=== PATIENT | male | born 1955 | race Caucasian/White ===

== ENCOUNTER 2022-10-27 15:54 | Inpatient (IN) | payer MEDICARE, OTHER ==
[~2022-10-27] VITALS: Ht 177.8 cm; Wt 75.8 kg
[2022-10-27] MEDS ORDERED: FUROSEMIDE 40 MG/4 ML VIAL IVP ONE (16:30)
[2022-10-27 16:32] LABS: BASOPHILS % (AUTO) 0.3 % (0.0-2.0); HEMATOCRIT 33.8 % (41-53); HEMOGLOBIN 10.9 g/dL (13.5-17.5); LYMPHOCYTES # (AUTO) 0.4 K/uL (1.0-4.8); LYMPHOCYTES % (AUTO) 9.8 % (22.0-44.0); MEAN CORPUSCULAR HEMOGLOBIN 28.2 pg (26.0-34.0); MEAN CORPUSCULAR HGB CONC 32.3 G/dL (31.0-37.0); MEAN CORPUSCULAR VOLUME 87 fL (80-100); MONOCYTES # (AUTO) 0.5 K/uL (0.1-1.0); MONOCYTES % (AUTO) 13.2 % (2.0-9.0); NEUTROPHILS # (AUTO) 2.9 K/uL (1.8-7.7); NEUTROPHILS % (AUTO) 75.7 % (40.0-70.0); PLATELET COUNT (AUTO) 162 K/uL (150-450); RED BLOOD CELL COUNT(AUTO) 3.87 MIL/uL (4.50-5.90); RED CELL DISTRIBUTION WIDTH 16.7 % (11.5-14.5); WHITE BLOOD COUNT (AUTO) 3.8 K/uL (4.5-11.0)
[2022-10-27 17:08] LABS: CALCIUM, TOTAL 7.6 mg/dL (8.8-10.5); CREATININE 2.75 mg/dL (0.60-1.30); POTASSIUM 3.6 mmol/L (3.5-5.1)
[2022-10-27 17:14] LABS: ALBUMIN 1.8 g/dL (3.4-5.0); BILIRUBIN,TOTAL 1.1 mg/dL (0.1-1.0); TOTAL PROTEIN, SERUM 5.2 g/dL (6.4-8.2)
[2022-10-27 17:16] LABS: LACTIC ACID 0.9 mmol/L (0.4-2.0); TROPONIN I-HIGH SENSITIVITY 61 ng/L (<76)
[2022-10-27 17:16] LABS: COVID AG,FIA SOURCE NASAL SWAB
[2022-10-27] MEDS ORDERED: BUMETANIDE 0.25 MG/ML 4 ML VIAL IVP ONE (17:30)
[2022-10-27 17:34] LABS: SARS-COV2 (COVID) ANTIGEN,FIA Negative (Negative)
[2022-10-27 17:35] LABS: INFLUENZA TYPE A NEGATIVE FOR TYPE A (NEGATIVE); INFLUENZA TYPE B NEGATIVE FOR TYPE B (NEGATIVE)
[2022-10-27 21:46] VITALS: BP 96/60; PULSE 93; RESP 22; TEMP 97.5
[2022-10-27] MEDS ORDERED: ACETAMINOPHEN 325 MG TABLET PO PRN (22:45)
[2022-10-27] MEDS ORDERED: IPRATROPIUM BROMIDE 0.5 MG/2.5 ML NEB SOLUTION NEB PRN (22:45)
[2022-10-27] MEDS ORDERED: ONDANSETRON HCL 4 MG/2 ML VIAL IVP PRN (22:45)
[2022-10-27] MEDS ORDERED: MORPHINE SULFATE 2 MG/ML SYRINGE IVP PRN (22:45)
[2022-10-27] MEDS ORDERED: BISACODYL 10 MG RECTAL RECTAL SUPPOSITORY PR PRN (22:45)
[2022-10-27] MEDS ORDERED: MAGNESIUM HYDROXIDE SUSPENSION 30 ML UDCUP PO PRN (22:45)
[2022-10-27] MEDS ORDERED: ALBUTEROL SULFATE 2.5 MG/0.5 ML NEB SOLUTION NEB PRN (22:45)
[2022-10-27] MEDS ORDERED: ATOR40TA28 PO (23:14)
[2022-10-27] MEDS ORDERED: FURO40 PO (23:14)
[2022-10-27] MEDS ORDERED: MULT-1203 PO (23:14)
[2022-10-27] MEDS ORDERED: GABA-1216 PO (23:14)
[2022-10-27] MEDS ORDERED: CARV3 PO (23:14)
[2022-10-27] MEDS ORDERED: PANT-31 PO (23:14)
[2022-10-27] MEDS ORDERED: TAMS0.4C34 PO (23:14)
[2022-10-27] MEDS ORDERED: BISA10SU11 PR (23:14)
[2022-10-27] MEDS ORDERED: APIX2.5T PO (23:14)
[2022-10-27] MEDS ORDERED: FINA-27 PO (23:14)
[2022-10-27] MEDS ORDERED: [UNRECOGNIZED DRUG - CODE] PO (23:14)
[2022-10-28] VITALS (7 sets, daily range): BP systolic 104–122; BP diastolic 57–78; PULSE 72–104; RESP 19–22; TEMP 97.4–98.7
[2022-10-28] MEDS: HEPARIN SODIUM,PORCINE 5,000 UNITS/ML VIAL SQ SCH ×3 (00:20→15:51)
[2022-10-28 05:37] LABS: BASOPHILS % (AUTO) 0.4 % (0.0-2.0); EOSINOPHILS % (AUTO) 0.9 % (1.0-6.0); HEMATOCRIT 36.7 % (41-53); LYMPHOCYTES # (AUTO) 0.4 K/uL (1.0-4.8); LYMPHOCYTES % (AUTO) 8.4 % (22.0-44.0); MEAN CORPUSCULAR HEMOGLOBIN 28.5 pg (26.0-34.0); MEAN CORPUSCULAR HGB CONC 32.6 G/dL (31.0-37.0); MEAN CORPUSCULAR VOLUME 88 fL (80-100); MONOCYTES # (AUTO) 0.6 K/uL (0.1-1.0); MONOCYTES % (AUTO) 12.5 % (2.0-9.0); NEUTROPHILS # (AUTO) 3.8 K/uL (1.8-7.7); NEUTROPHILS % (AUTO) 77.8 % (40.0-70.0); PLATELET COUNT (AUTO) 166 K/uL (150-450); RED CELL DISTRIBUTION WIDTH 16.8 % (11.5-14.5); WHITE BLOOD COUNT (AUTO) 4.9 K/uL (4.5-11.0)
[2022-10-28] MEDS ORDERED: SODIUM CHLORIDE 0.9% 250 ML IV ONE (05:37)
[2022-10-28] MEDS: CefTRIAXone 1 GM/DEXTROSE 50 ML IV SCH (05:45)
[2022-10-28 06:07] LABS: BILIRUBIN,TOTAL 1.2 mg/dL (0.1-1.0); CALCIUM, TOTAL 7.8 mg/dL (8.8-10.5); CREATININE 2.48 mg/dL (0.60-1.30); POTASSIUM 3.3 mmol/L (3.5-5.1); TOTAL PROTEIN, SERUM 5.8 g/dL (6.4-8.2)
[2022-10-28 06:09] LABS: TROPONIN I-HIGH SENSITIVITY 52 ng/L (<76)
[2022-10-28] MEDS: PANTOPRAZOLE SODIUM 40 MG DR TABLET PO SCH (08:29)
[2022-10-28] MEDS ORDERED: FUROSEMIDE 20 MG/2 ML VIAL IVP SCH (09:00)
[2022-10-28 09:51] LABS: APPEARANCE,URINE CLEAR (CLEAR); BILIRUBIN,URINE NEGATIVE (NEGATIVE); COLOR,URINE YELLOW (YELLOW); GLUCOSE, URINE (UA) NEGATIVE (NEGATIVE); KETONES,URINE NEGATIVE (NEGATIVE); LEUKOCYTE ESTERASE ,URINE NEGATIVE (NEGATIVE); NITRATE,URINE NEGATIVE (NEGATIVE); OCCULT BLOOD,URINE NEGATIVE (NEGATIVE); PH,URINE 6.5 (5.0-8.0); PROTEIN,URINE TRACE mg/dL (NEGATIVE); SPECIFIC GRAVITIY, URINE 1.006 (1.003-1.030)
[2022-10-28 09:54] LABS: BACTERIA,URINE None Seen /HPF (None Seen); RBC,URINE None Seen /HPF (0-2); WBC,URINE None Seen /HPF (0-5)
[2022-10-28] MEDS ORDERED: POTASSIUM CHLORIDE 20 MEQ ER TABLET PO ONE (10:45)
[2022-10-28] MEDS: BUMETANIDE 0.25 MG/ML 4 ML VIAL IVP SCH ×2 (12:46→20:30)
[2022-10-28] MEDS: APIXABAN 2.5 MG TABLET PO SCH (20:30)
[2022-10-28] MEDS ORDERED: CARVEDILOL 3.125 MG TABLET PO SCH (21:00)
[2022-10-29] MEDS: CefTRIAXone 1 GM/DEXTROSE 50 ML IV SCH (04:08)
[2022-10-29 04:37] VITALS: BP 125/79; PULSE 95; RESP 18; TEMP 98.2
[2022-10-29 07:39] VITALS: BP 124/76; PULSE 120; RESP 19; TEMP 97.1
[2022-10-29] MEDS ORDERED: POTASSIUM CHLORIDE 20 MEQ ER TABLET PO ONE (08:00)
[2022-10-29] MEDS: PANTOPRAZOLE SODIUM 40 MG DR TABLET PO SCH (09:14)
[2022-10-29] MEDS: APIXABAN 2.5 MG TABLET PO SCH ×2 (09:14→21:47)
[2022-10-29] MEDS: BUMETANIDE 0.25 MG/ML 4 ML VIAL IVP SCH ×2 (09:14→21:47)
[2022-10-29] MEDS: CARVEDILOL 6.25 MG TABLET PO SCH ×2 (09:14→21:47)
[2022-10-29 09:57] LABS: BASOPHILS % (AUTO) 0.5 % (0.0-2.0); EOSINOPHILS % (AUTO) 0.5 % (1.0-6.0); HEMATOCRIT 39.1 % (41-53); HEMOGLOBIN 12.6 g/dL (13.5-17.5); LYMPHOCYTES # (AUTO) 0.4 K/uL (1.0-4.8); LYMPHOCYTES % (AUTO) 8.3 % (22.0-44.0); MEAN CORPUSCULAR HEMOGLOBIN 28.1 pg (26.0-34.0); MEAN CORPUSCULAR HGB CONC 32.2 G/dL (31.0-37.0); MEAN CORPUSCULAR VOLUME 87 fL (80-100); MONOCYTES # (AUTO) 0.7 K/uL (0.1-1.0); MONOCYTES % (AUTO) 15.5 % (2.0-9.0); NEUTROPHILS # (AUTO) 3.6 K/uL (1.8-7.7); NEUTROPHILS % (AUTO) 75.2 % (40.0-70.0); PLATELET COUNT (AUTO) 246 K/uL (150-450); RED BLOOD CELL COUNT(AUTO) 4.47 MIL/uL (4.50-5.90); RED CELL DISTRIBUTION WIDTH 16.7 % (11.5-14.5); WHITE BLOOD COUNT (AUTO) 4.8 K/uL (4.5-11.0)
[2022-10-29 10:14] LABS: TROPONIN I-HIGH SENSITIVITY 27 ng/L (<76)
[2022-10-29 10:18] LABS: BILIRUBIN,TOTAL 1.2 mg/dL (0.1-1.0); CALCIUM, TOTAL 7.7 mg/dL (8.8-10.5); CREATININE 1.89 mg/dL (0.60-1.30); POTASSIUM 3.3 mmol/L (3.5-5.1); TOTAL PROTEIN, SERUM 6.1 g/dL (6.4-8.2)
[2022-10-29 12:42] VITALS: BP 100/71; PULSE 106; RESP 19; TEMP 97.7
[2022-10-29 15:45] VITALS: BP 112/57; PULSE 112; RESP 19; TEMP 97.1
[2022-10-29] MEDS: MetroNIDAZOLE 500 MG TABLET PO SCH ×2 (16:29→23:33)
[2022-10-29 19:39] VITALS: BP 100/63; PULSE 104; RESP 20; TEMP 97.6
[2022-10-30 00:02] VITALS: BP 100/59; PULSE 103; RESP 19; TEMP 97.9
[2022-10-30] MEDS: CefTRIAXone 1 GM/DEXTROSE 50 ML IV SCH (03:51)
[2022-10-30 04:44] VITALS: BP 106/81; PULSE 112; RESP 20; TEMP 98
[2022-10-30 07:09] VITALS: BP 107/75; PULSE 101; RESP 18; TEMP 98
[2022-10-30 07:31] LABS: BASOPHILS % (AUTO) 0.8 % (0.0-2.0); EOSINOPHILS % (AUTO) 0.9 % (1.0-6.0); HEMATOCRIT 37.3 % (41-53); HEMOGLOBIN 12.1 g/dL (13.5-17.5); LYMPHOCYTES # (AUTO) 0.6 K/uL (1.0-4.8); LYMPHOCYTES % (AUTO) 10.9 % (22.0-44.0); MEAN CORPUSCULAR HEMOGLOBIN 28.5 pg (26.0-34.0); MEAN CORPUSCULAR HGB CONC 32.5 G/dL (31.0-37.0); MEAN CORPUSCULAR VOLUME 88 fL (80-100); MONOCYTES # (AUTO) 0.8 K/uL (0.1-1.0); MONOCYTES % (AUTO) 15.1 % (2.0-9.0); NEUTROPHILS # (AUTO) 3.8 K/uL (1.8-7.7); NEUTROPHILS % (AUTO) 72.3 % (40.0-70.0); PLATELET COUNT (AUTO) 260 K/uL (150-450); RED BLOOD CELL COUNT(AUTO) 4.25 MIL/uL (4.50-5.90); RED CELL DISTRIBUTION WIDTH 16.3 % (11.5-14.5); WHITE BLOOD COUNT (AUTO) 5.2 K/uL (4.5-11.0)
[2022-10-30 07:49] LABS: BILIRUBIN,TOTAL 1.2 mg/dL (0.1-1.0); CREATININE 1.79 mg/dL (0.60-1.30); POTASSIUM 3.7 mmol/L (3.5-5.1); TOTAL PROTEIN, SERUM 6.1 g/dL (6.4-8.2)
[2022-10-30] MEDS: CARVEDILOL 6.25 MG TABLET PO SCH ×2 (09:19→21:08)
[2022-10-30] MEDS: MetroNIDAZOLE 500 MG TABLET PO SCH ×2 (09:19→16:31)
[2022-10-30] MEDS: APIXABAN 2.5 MG TABLET PO SCH ×2 (09:19→21:14)
[2022-10-30] MEDS: PANTOPRAZOLE SODIUM 40 MG DR TABLET PO SCH (09:19)
[2022-10-30] MEDS: BUMETANIDE 1 MG TABLET PO SCH ×2 (09:19→21:08)
[2022-10-30 11:15] VITALS: BP 119/59; PULSE 116; RESP 18; TEMP 98
[2022-10-30 15:17] VITALS: BP 110/70; PULSE 110; RESP 18; TEMP 98
[2022-10-30] MEDS: HYDROCODONE/ACETAMINOPHEN 5-325 MG TABLET PO PRN (16:37)
[2022-10-30 20:36] VITALS: BP 97/65; PULSE 111; RESP 19; TEMP 98.5
[2022-10-31] MEDS: MetroNIDAZOLE 500 MG TABLET PO SCH ×4 (00:47→23:21)
[2022-10-31 00:48] VITALS: BP 98/64; PULSE 75; RESP 19; TEMP 98
[2022-10-31 04:43] VITALS: BP 118/63; PULSE 59; RESP 18; TEMP 97.7
[2022-10-31] MEDS: CefTRIAXone 1 GM/DEXTROSE 50 ML IV SCH (05:07)
[2022-10-31 06:52] LABS: BASOPHILS % (AUTO) 0.7 % (0.0-2.0); HEMOGLOBIN 11.4 g/dL (13.5-17.5); LYMPHOCYTES # (AUTO) 0.5 K/uL (1.0-4.8); LYMPHOCYTES % (AUTO) 10.2 % (22.0-44.0); MEAN CORPUSCULAR HEMOGLOBIN 28.5 pg (26.0-34.0); MEAN CORPUSCULAR HGB CONC 32.6 G/dL (31.0-37.0); MEAN CORPUSCULAR VOLUME 87 fL (80-100); MONOCYTES # (AUTO) 0.7 K/uL (0.1-1.0); MONOCYTES % (AUTO) 13.7 % (2.0-9.0); NEUTROPHILS # (AUTO) 3.8 K/uL (1.8-7.7); NEUTROPHILS % (AUTO) 74.4 % (40.0-70.0); PLATELET COUNT (AUTO) 280 K/uL (150-450); RED BLOOD CELL COUNT(AUTO) 4.01 MIL/uL (4.50-5.90); WHITE BLOOD COUNT (AUTO) 5.1 K/uL (4.5-11.0)
[2022-10-31 07:05] LABS: ALBUMIN 1.9 g/dL (3.4-5.0); BILIRUBIN,TOTAL 1.1 mg/dL (0.1-1.0); CALCIUM, TOTAL 7.9 mg/dL (8.8-10.5); CREATININE 1.78 mg/dL (0.60-1.30); MAGNESIUM 2.3 mg/dL (1.80-2.40); PHOSPHORUS 2.6 mg/dL (2.5-4.9); POTASSIUM 3.6 mmol/L (3.5-5.1); TOTAL PROTEIN, SERUM 5.8 g/dL (6.4-8.2)
[2022-10-31] MEDS: APIXABAN 2.5 MG TABLET PO SCH ×2 (09:49→20:52)
[2022-10-31] MEDS: PANTOPRAZOLE SODIUM 40 MG DR TABLET PO SCH (09:49)
[2022-10-31] MEDS: CARVEDILOL 6.25 MG TABLET PO SCH ×2 (09:49→20:52)
[2022-10-31] MEDS: BUMETANIDE 1 MG TABLET PO SCH (09:50)
[2022-10-31] MEDS: BUMETANIDE 0.25 MG/ML 4 ML VIAL IVP SCH ×2 (10:10→20:52)
[2022-10-31] MEDS ORDERED: *CLINICAL-LEVOFLOXACIN IVPB DOSING CLINICAL ONE (10:30)
[2022-10-31] MEDS: LEVOFLOXACIN 750 MG/D5% WATER 150 ML IV SCH (11:15)
[2022-10-31 11:32] VITALS: BP 94/63; PULSE 82; RESP 20; TEMP 98
[2022-10-31] MEDS ORDERED: LORazepam 0.5 MG TABLET PO ONE (17:45)
[2022-10-31 21:17] VITALS: BP 102/73; PULSE 97; RESP 18; TEMP 98
[2022-11-01] VITALS: BP 132/85; PULSE 99; RESP 18; TEMP 97.7
[2022-11-01 04:46] VITALS: BP 116/79; PULSE 102; RESP 18; TEMP 97.5
[2022-11-01 06:59] LABS: BASOPHILS % (AUTO) 0.6 % (0.0-2.0); EOSINOPHILS % (AUTO) 0.5 % (1.0-6.0); HEMATOCRIT 34.1 % (41-53); HEMOGLOBIN 11.2 g/dL (13.5-17.5); LYMPHOCYTES # (AUTO) 0.5 K/uL (1.0-4.8); LYMPHOCYTES % (AUTO) 10.7 % (22.0-44.0); MEAN CORPUSCULAR HEMOGLOBIN 28.4 pg (26.0-34.0); MEAN CORPUSCULAR HGB CONC 32.8 G/dL (31.0-37.0); MEAN CORPUSCULAR VOLUME 87 fL (80-100); MONOCYTES # (AUTO) 0.7 K/uL (0.1-1.0); NEUTROPHILS # (AUTO) 3.5 K/uL (1.8-7.7); NEUTROPHILS % (AUTO) 74.2 % (40.0-70.0); PLATELET COUNT (AUTO) 314 K/uL (150-450); RED BLOOD CELL COUNT(AUTO) 3.94 MIL/uL (4.50-5.90); RED CELL DISTRIBUTION WIDTH 16.5 % (11.5-14.5); WHITE BLOOD COUNT (AUTO) 4.7 K/uL (4.5-11.0)
[2022-11-01 07:25] LABS: ALBUMIN 2.1 g/dL (3.4-5.0); BILIRUBIN,TOTAL 1.3 mg/dL (0.1-1.0); CALCIUM, TOTAL 8.3 mg/dL (8.8-10.5); CREATININE 1.64 mg/dL (0.60-1.30); POTASSIUM 3.5 mmol/L (3.5-5.1)
[2022-11-01] MEDS: PANTOPRAZOLE SODIUM 40 MG DR TABLET PO SCH (07:58)
[2022-11-01] MEDS: APIXABAN 2.5 MG TABLET PO SCH ×2 (07:58→20:13)
[2022-11-01] MEDS: MetroNIDAZOLE 500 MG TABLET PO SCH ×3 (07:59→23:32)
[2022-11-01] MEDS: CARVEDILOL 6.25 MG TABLET PO SCH ×2 (07:59→20:13)
[2022-11-01] MEDS: BUMETANIDE 0.25 MG/ML 4 ML VIAL IVP SCH ×2 (07:59→20:12)
[2022-11-01] MEDS ORDERED: LORazepam 0.5 MG TABLET ONE (08:02)
[2022-11-01] MEDS: HYDROCODONE/ACETAMINOPHEN 5-325 MG TABLET PO PRN ×3 (08:06→16:29)
[2022-11-01 08:28] VITALS: BP 112/66; PULSE 117; RESP 18; TEMP 97.5
[2022-11-01 16:00] VITALS: BP 112/83; PULSE 115; RESP 18; TEMP 97.7
[2022-11-01 19:46] VITALS: BP 116/72; PULSE 98; RESP 19; TEMP 97.7
[2022-11-01] MEDS: ZOLPIDEM TARTRATE 5 MG TABLET PO PRN (20:44)
[2022-11-02] VITALS (7 sets, daily range): BP systolic 102–126; BP diastolic 67–89; PULSE 92–109; RESP 18–20; TEMP 97.5–98
[2022-11-02 07:34] LABS: BASOPHILS % (AUTO) 0.9 % (0.0-2.0); EOSINOPHILS % (AUTO) 0.3 % (1.0-6.0); HEMATOCRIT 33.9 % (41-53); HEMOGLOBIN 11.3 g/dL (13.5-17.5); LYMPHOCYTES # (AUTO) 0.6 K/uL (1.0-4.8); MEAN CORPUSCULAR HEMOGLOBIN 28.7 pg (26.0-34.0); MEAN CORPUSCULAR HGB CONC 33.2 G/dL (31.0-37.0); MEAN CORPUSCULAR VOLUME 86 fL (80-100); MONOCYTES # (AUTO) 0.7 K/uL (0.1-1.0); MONOCYTES % (AUTO) 15.2 % (2.0-9.0); NEUTROPHILS # (AUTO) 3.2 K/uL (1.8-7.7); NEUTROPHILS % (AUTO) 69.6 % (40.0-70.0); PLATELET COUNT (AUTO) 320 K/uL (150-450); RED BLOOD CELL COUNT(AUTO) 3.92 MIL/uL (4.50-5.90); RED CELL DISTRIBUTION WIDTH 16.5 % (11.5-14.5); WHITE BLOOD COUNT (AUTO) 4.6 K/uL (4.5-11.0)
[2022-11-02 08:00] LABS: ALBUMIN 2.1 g/dL (3.4-5.0); BILIRUBIN,TOTAL 1.2 mg/dL (0.1-1.0); CALCIUM, TOTAL 8.4 mg/dL (8.8-10.5); CREATININE 1.7 mg/dL (0.60-1.30); PHOSPHORUS 2.7 mg/dL (2.5-4.9); POTASSIUM 3.3 mmol/L (3.5-5.1); TOTAL PROTEIN, SERUM 5.9 g/dL (6.4-8.2)
[2022-11-02] MEDS: MetroNIDAZOLE 500 MG TABLET PO SCH ×3 (09:03→23:38)
[2022-11-02] MEDS: BUMETANIDE 1 MG TABLET PO SCH ×2 (09:03→20:33)
[2022-11-02] MEDS: CARVEDILOL 6.25 MG TABLET PO SCH ×2 (09:03→20:34)
[2022-11-02] MEDS: APIXABAN 2.5 MG TABLET PO SCH ×2 (09:04→20:33)
[2022-11-02] MEDS: PANTOPRAZOLE SODIUM 40 MG DR TABLET PO SCH (09:04)
[2022-11-02] MEDS: POTASSIUM CHL 10 MEQ/WATER 50 ML IV SCH ×2 (10:00→11:00)
[2022-11-02] MEDS: LEVOFLOXACIN 750 MG/D5% WATER 150 ML IV SCH (10:09)
[2022-11-02] MEDS ORDERED: *CLINICAL-LEVOFLOXACIN ORAL DOSING CLINICAL ONE (11:45)
[2022-11-02] MEDS: LEVOFLOXACIN 750 MG TABLET PO SCH (12:32)
[2022-11-02 17:20] LABS: CALCIUM, TOTAL 8.2 mg/dL (8.8-10.5); CREATININE 1.68 mg/dL (0.60-1.30); PHOSPHORUS 2.5 mg/dL (2.5-4.9); POTASSIUM 3.4 mmol/L (3.5-5.1)
[2022-11-02] MEDS: ZOLPIDEM TARTRATE 5 MG TABLET PO PRN (21:51)
[2022-11-03 05:19] VITALS: BP 106/74; PULSE 98; RESP 19; TEMP 98
[2022-11-03 06:25] LABS: BASOPHILS % (AUTO) 1.6 % (0.0-2.0); EOSINOPHILS % (AUTO) 0.3 % (1.0-6.0); HEMATOCRIT 33.6 % (41-53); LYMPHOCYTES # (AUTO) 0.4 K/uL (1.0-4.8); LYMPHOCYTES % (AUTO) 9.5 % (22.0-44.0); MEAN CORPUSCULAR HEMOGLOBIN 28.5 pg (26.0-34.0); MEAN CORPUSCULAR HGB CONC 32.8 G/dL (31.0-37.0); MEAN CORPUSCULAR VOLUME 87 fL (80-100); MONOCYTES # (AUTO) 0.5 K/uL (0.1-1.0); MONOCYTES % (AUTO) 12.8 % (2.0-9.0); NEUTROPHILS # (AUTO) 3.2 K/uL (1.8-7.7); NEUTROPHILS % (AUTO) 75.8 % (40.0-70.0); PLATELET COUNT (AUTO) 339 K/uL (150-450); RED BLOOD CELL COUNT(AUTO) 3.86 MIL/uL (4.50-5.90); RED CELL DISTRIBUTION WIDTH 16.6 % (11.5-14.5); WHITE BLOOD COUNT (AUTO) 4.2 K/uL (4.5-11.0)
[2022-11-03 06:40] LABS: ALBUMIN 2.2 g/dL (3.4-5.0); BILIRUBIN,TOTAL 1.3 mg/dL (0.1-1.0); CALCIUM, TOTAL 8.2 mg/dL (8.8-10.5); CREATININE 1.69 mg/dL (0.60-1.30); POTASSIUM 3.3 mmol/L (3.5-5.1); TOTAL PROTEIN, SERUM 5.8 g/dL (6.4-8.2)
[2022-11-03 06:42] LABS: CALCIUM, TOTAL 8.3 mg/dL (8.8-10.5); CREATININE 1.67 mg/dL (0.60-1.30); PHOSPHORUS 2.7 mg/dL (2.5-4.9); POTASSIUM 3.3 mmol/L (3.5-5.1)
[2022-11-03 07:27] VITALS: BP 117/75; PULSE 107; RESP 18; TEMP 97.8
[2022-11-03] MEDS ORDERED: POTASSIUM CHLORIDE 20 MEQ ER TABLET PO ONE (08:00)
[2022-11-03] MEDS: CARVEDILOL 6.25 MG TABLET PO SCH ×2 (09:22→20:24)
[2022-11-03] MEDS: APIXABAN 2.5 MG TABLET PO SCH ×2 (09:22→20:24)
[2022-11-03] MEDS: MetroNIDAZOLE 500 MG TABLET PO SCH ×3 (09:22→23:56)
[2022-11-03] MEDS: BUMETANIDE 1 MG TABLET PO SCH ×2 (09:22→20:24)
[2022-11-03] MEDS: PANTOPRAZOLE SODIUM 40 MG DR TABLET PO SCH (09:22)
[2022-11-03 12:04] VITALS: BP 103/84; PULSE 95; RESP 19; TEMP 97.8
[2022-11-03 15:13] VITALS: BP 112/77; PULSE 107; RESP 19; TEMP 97.9
[2022-11-03 20:06] VITALS: BP 103/75; PULSE 80; RESP 20; TEMP 98.2
[2022-11-03] MEDS: ZOLPIDEM TARTRATE 5 MG TABLET PO PRN (20:24)
[2022-11-03 23:54] VITALS: BP 97/73; PULSE 69; RESP 18; TEMP 98.6
[2022-11-04 05:27] VITALS: BP 107/67; PULSE 82; RESP 20; TEMP 97.9
[2022-11-04 07:04] LABS: CALCIUM, TOTAL 8.6 mg/dL (8.8-10.5); CREATININE 1.88 mg/dL (0.60-1.30); MAGNESIUM 2.1 mg/dL (1.80-2.40); PHOSPHORUS 3.4 mg/dL (2.5-4.9); POTASSIUM 3.8 mmol/L (3.5-5.1)
[2022-11-04 07:10] VITALS: BP 106/73; PULSE 104; RESP 18; TEMP 98
[2022-11-04] MEDS: CARVEDILOL 6.25 MG TABLET PO SCH (08:07)
[2022-11-04] MEDS: MetroNIDAZOLE 500 MG TABLET PO SCH ×2 (08:07→16:18)
[2022-11-04] MEDS: APIXABAN 2.5 MG TABLET PO SCH (08:07)
[2022-11-04] MEDS: LEVOFLOXACIN 750 MG TABLET PO SCH (08:07)
[2022-11-04] MEDS: PANTOPRAZOLE SODIUM 40 MG DR TABLET PO SCH (08:07)
[2022-11-04] MEDS ORDERED: BUMETANIDE 1 MG TABLET PO SCH (09:00)
[2022-11-04 11:21] VITALS: BP 101/73; PULSE 84; RESP 18; TEMP 98
[2022-11-04] MEDS ORDERED: CARV6 PO (15:44)
[2022-11-04] MEDS ORDERED: APIX2.5T PO (15:44)
[2022-11-04] MEDS ORDERED: PANT-31 PO (15:44)
[2022-11-04] MEDS ORDERED: GABA-1216 PO (15:44)
[2022-11-04] MEDS ORDERED: FINA-27 PO (15:44)
[2022-11-04] MEDS ORDERED: BUME1TAB6 PO (15:44)
[2022-11-04] MEDS ORDERED: ATOR40TA28 PO (15:44)
[2022-11-04] MEDS ORDERED: LEVO750T68 PO (15:44)
[2022-11-04] MEDS ORDERED: METR500 PO (15:44)
[2022-11-04] MEDS ORDERED: TAMS0.4C34 PO (15:44)
[2022-11-04] MEDS ORDERED: MULT-1203 PO (15:44)
[2022-11-04 15:52] VITALS: BP 110/80; PULSE 90; RESP 18; TEMP 98.2
== END 2022-11-04 20:18 | disposition home health service (06) | DRG 871 ==
LOC: EMS 15:55 → EDBD 15:55 → 5S 20:00
PROVIDERS: ADMIT Hospitalist; ATTEND Hospitalist
DX: A41.51 Sepsis due to Escherichia coli [E. coli] (principal); E43 Unspecified severe protein-calorie malnutrition; J18.1 Lobar pneumonia, unspecified organism; I50.23 Acute on chronic systolic (congestive) heart failure; J96.01 Acute respiratory failure with hypoxia; N17.9 Acute kidney failure, unspecified; I13.0 Hypertensive heart and chronic kidney disease with heart failure and stage 1 through stage 4 chronic kidney disease, or unspecified chronic kidney disease; I48.19 Other persistent atrial fibrillation; N18.4 Chronic kidney disease, stage 4 (severe); N13.30 Unspecified hydronephrosis; N25.81 Secondary hyperparathyroidism of renal origin; I42.9 Cardiomyopathy, unspecified; Z66 Do not resuscitate; Z20.822 Contact with and (suspected) exposure to COVID-19; F29 Unspecified psychosis not due to a substance or known physiological condition; D72.819 Decreased white blood cell count, unspecified; Z53.20 Procedure and treatment not carried out because of patient's decision for unspecified reasons; R45.1 Restlessness and agitation; N13.9 Obstructive and reflux uropathy, unspecified; K21.9 Gastro-esophageal reflux disease without esophagitis; I48.0 Paroxysmal atrial fibrillation; N40.0 Benign prostatic hyperplasia without lower urinary tract symptoms; I49.5 Sick sinus syndrome; E87.6 Hypokalemia; I08.1 Rheumatic disorders of both mitral and tricuspid valves; Z95.0 Presence of cardiac pacemaker; I25.2 Old myocardial infarction; Z78.1 Physical restraint status; Z79.899 Other long term (current) drug therapy; Z87.891 Personal history of nicotine dependence; Z68.24 Body mass index [BMI] 24.0-24.9, adult; Z91.199 Patient's noncompliance with other medical treatment and regimen due to unspecified reason
CPT/HCPCS: 71045; 74176; 76770; 80048; 80053; 81001; 83605; 83690; 83735; 83880; 84100; 84484; 85025; 87040; 87077; 87205; 87804; 93005; 93306; 97116; 97162; 97163; 97165; 97530; 97535; 99291; J0696; J1644; J1940; J1956; J3490; J7050; Q9967; 36415-L1; 36415-TC